=== PATIENT | female | born 1945 | race Caucasian/White ===

== ENCOUNTER 2018-12-06 09:15 | Inpatient (IN) | payer OTHER ==
[2018-12-06] MEDS: CEFAZOLIN 2 GM/D5W 2 GM/50 ML ML IVPB SCH ×2 (04:00→19:57)
--- NOTE | 2018-12-06 08:00 | HP ---
[facility]ellite [facility] - Chief Complaint Chief Complaint: right knee pain - Past Medical History Allergies/Adverse Reactions: Allergies Allergy/AdvReac Type Severity Reaction Status Date / Time No Known Drug Allergies Allergy Verified 10/26/18 09:13 - Current Medications Current Medications: Home Medications Medication Instructions Recorded Aspirin [Aspirin EC] 81 mg PO DAILY 05/09/14 Pantoprazole Sodium [Protonix] 40 mg PO DAILY 05/09/14 Pravastatin Sodium [Pravachol -] 20 mg PO DAILY 05/09/14 Amoxicillin - [Amoxicillin 875mg 875 mg PO BID 12/02/18 Tablet -] Olmesartan/Amlodipin/Hcthiazid 1 each PO DAILY 12/02/18 [Tribenzor 40-5-25 mg Tablet] Oxybutynin Chloride [Ditropan -] 5 mg PO DAILY 12/02/18 Tramadol HCl 50 mg PO Q8H PRN 12/02/18 Satellite Physical Exam - Physical Examination General Appearance: Well Nourished, Well Developed, Alert & Oriented x3 ENT: Clear Lung: Normal air movement Heart: Regular rate & rhythm Extremities: Other (right knee- + swelling, + ttp, decr rom, nvi xrays show grade 4 tricompartmental djd) Neurological: Intact, Alert, Oriented Satellite Impression/Plan - Impression/Plan Impression: right knee djd Operative Procedure: right tavo tkr Date to be Performed: 12/06/18
[2018-12-06] MEDS ORDERED: TRANEXAMIC ACID 1000 MG/10 ML VIAL IVPUSH ONE (09:31)
[2018-12-06] MEDS ORDERED: CELECOXIB 200 MG CAPSULE PO ONE (09:31)
[2018-12-06] MEDS ORDERED: GABAPENTIN 300 MG CAPSULE (FP) PO ONE (09:31)
[2018-12-06] MEDS ORDERED: oxyCODONE HCL 10 MG SUSTAINED ACTING TABLET PO ONE (09:31)
[2018-12-06] MEDS ORDERED: CEFAZOLIN 2 GM in DEXTROSE 5%-WATER - 50 ML IVPB ONE (09:31)
[2018-12-06 09:37] VITALS: BMI 34.4
[2018-12-06] MEDS ORDERED: ceFAZolin SODIUM 1 GM VIAL ONE ×2 (10:15→11:33)
[2018-12-06] MEDS ORDERED: VANCOMYCIN 1,000 MG VIAL (RESTRICTED TO ID ONLY) ONE (10:15)
[2018-12-06] MEDS ORDERED: MIDAZOLAM HCL 2 MG/2 ML SINGLE DOSE VIAL ONE (10:27)
[2018-12-06] MEDS ORDERED: BUPIVACAINE LIPOSOME/PF (EXPAREL) 266 MG/20 ML VIAL ONE (10:28)
[2018-12-06] MEDS ORDERED: ePHEDrine SULFATE 50 MG/1 ML AMPULE ONE (11:49)
[2018-12-06] MEDS ORDERED: ONDANSETRON 4 MG/2 ML VIAL IVPUSH PRN ×2 (12:20→13:20)
[2018-12-06] MEDS ORDERED: oxyCODONE HCL 5 MG TABLET PO PRN (12:21)
[2018-12-06] MEDS ORDERED: LACTATED RINGERS SOLUTION 1,000 ML IV SCH ×2 (12:30→13:30)
[2018-12-06] MEDS ORDERED: MAG HYDROX/AL HYDROX/SIMETH 30 ML UNIT-DOSE CUP PO PRN (13:20)
[2018-12-06] MEDS ORDERED: MAGNESIUM HYDROX 2400MG/30ML ORAL SUSPENSION 30 ML CUP PO PRN (13:20)
--- NOTE | 2018-12-06 13:22 | OP ---
Operative Note - Note: Operative Date: 12/06/18 (emma) Pre-Operative Diagnosis: right knee djd Operation: right tavo tkr Post-Operative Diagnosis: Same as Pre-op Surgeon: Nishant Persaud Language Translator: Heladio Chahal Anesthesiologist/COMPUTER FORENSIC EXAMINER: Eliel Covington Anesthesia: Spinal, Local Specimens Removed: bone fragments Estimated Blood Loss (mls): 100 Operative Report Dictated: Yes
--- NOTE | 2018-12-06 13:50 | SPEC ---
DATE OF OPERATION: 12/06/2018 PREOPERATIVE DIAGNOSIS: Degenerative joint disease, right knee. POSTOPERATIVE DIAGNOSIS: Degenerative joint disease, right knee. PROCEDURE: Right total knee replacement with robotic-assisted navigation (MAKOplasty). SURGICAL ATTENDING: Nishant Persaud MD TALENT ACQUISITION SPECIALIST: MIREILLE Alfonso ANESTHESIA: Regional and spinal. CLOSURE: Triathlon cemented total knee system with a 3 femur, 4 tibia, 11 polyethylene, 32 patella, No. 1 Vicryl to fascia, 0 and 2-0 for subcutaneous, 3-0 Monocryl subcuticular with skin glue for skin, 4-0 undyed Vicryl for the pen sites. ESTIMATED BLOOD LOSS: Less than 100 mL. COMPLICATIONS: None. CONDITION: To recovery room in stable condition. DESCRIPTION OF OPERATIVE PROCEDURE: Patient was taken to the operating room on December 06, 2018. Regional and general anesthesia was administered by the anesthesiologist. IV Kefzol and TXA were administered by the anesthesiologist. Well-padded pneumatic tourniquet was placed on the proximal thigh. The right lower extremity was prepped and draped in the usual sterile fashion. The leg was exsanguinated with an Esmarch bandage, and tourniquet was inflated to 275 mmHg. A 12 to 15-cm longitudinal midline incision was incised while centered over the patella. The dissection was carried down to the level of the extensor mechanism with sufficient flaps made to adequately perform the procedure. A medial parapatellar arthrotomy was then performed. We made a cuff of tissue on the patella for later closure. The patella was inverted, the knee was flexed up. The fat pad was excised. The subperiosteal dissection was on the anteromedial proximal tibia around towards the direction of the MCL. The ACL and the PCL were transected and debrided. The meniscal remnants of the medial and lateral meniscus were debrided and removed. This allowed the knee to be able to "be brought forward." The checkpoints were malleted into the tibia and into the femur. Two threaded pins were drilled anteroposteriorly proximal to the knee through the previous incision, through the anterior cortex, then just engaging the posterior cortex. To these pins was assembled the femoral navigation array. One handbreadth below the tibial tubercle, 2 stab incisions were used to drill 2 threaded pins in parallel fashion into the tibia, again through the anterior cortex and just engaging the posterior cortex. To these pins was fastened the tibial arrays. The knee was then registered with the navigation device with center of rotation of the hip, medial and lateral malleoli, both checkpoints, and multiple points on both the femur and the tibia to ensure excellent registration. The navigation device was directed off the "top of the bubbles" on both the femur and the tibia. The navigation passed within less than 0.5 mm to plan. The knee was then thoroughly inspected to remove all osteophytes both medially, laterally, and on the femur and the tibia, and whatever osteophytes were available for dissection. The knee was then taken to extension and to flexion, and stressed in both varus and valgus to assess flexion gaps. The virtual position of the components on the navigation device were then manipulated to optimize the position and to ensure equal gaps in both flexion and extension, and both medially and laterally. The robot was then brought into the field and was registered. The cuts were then made both on the femur and on the tibia as to plan. All osteophytes posteriorly were then removed as well. The gaps were then measured again in flexion and extension to be equal in both flexion and extension and medial and laterally. The femoral notch was then made, as we were doing a posterior stabilizing component, with the appropriate sized box. Trial reduction of the femur achieved excellent [id number] fit. A tibial baseplate of appropriate polyethylene thickness was "floated in the knee." It was ensured to be in the excellent position by navigation devices and was pinned in place. The knee was taken through a range of motion, and found to have excellent stability throughout flexion and extension. The patella was calibrated for thickness and osteotomized down to the appropriate level. The appropriate lollipop was used to drill the lug holes in the patella and the trial button was applied. The knee was taken through a range of motion and found to have excellent tracking of the patella, and patella from full extension to full flexion. Trial components were removed, the keel was punched and drilled, and a sclerotic bone on the tibia was drilled to help with cement interdigitation. The knee was thoroughly irrigated with the pulse antibiotic milking system installer. The real components were then cemented in using monitored arrangement cement techniques with antibiotic cement, and pressurization and extension. After the cement was hardened, the knee was thoroughly inspected to remove any extra cement. The real polyethylene component was then clipped into place. Range of motion, stability, and tracking were as described earlier. The checkpoints and the pins were removed. The knee was thoroughly irrigated with antibiotic irrigation. Vancomycin powder was placed into the knee for antibiotic prophylaxis. The medial parapatellar arthrotomy was then closed using number 1 Vicryl interrupted suture. After closure of the deep layer, the knee was taken through a range of motion, and found to have excellent stability of the patella with no dislocation and no undue tension on the repair. The subcutaneous was pulse antibiotic irrigated, and was then closed with 2-0 Vicryl, 3-0 Monocryl subcuticular with the skin glue for the skin. The distal tibial pin site was irrigated thoroughly as well and then closed with 4-0 undyed Vicryl. A sterile Aquacel dressing was applied, followed by a Sam dressing. Tourniquet was deflated. Total tourniquet time was approximately 75 minutes. No complications. Patient was awakened from anesthesia and transferred to recovery room in stable condition. Postoperative x-rays revealed excellent position of the components. Brian [id number]
[2018-12-06] MEDS: ACETAMINOPHEN 325 MG TABLET (FP) PO SCH ×2 (19:23→19:57)
[2018-12-06] MEDS: SENNOSIDES/DOCUSATE COMBO (SENNA PLUS) TABLET (UD) PO SCH (21:19)
[2018-12-06] MEDS: oxyCODONE HCL 10 MG SUSTAINED ACTING TABLET PO SCH (21:20)
[2018-12-07] MEDS: ACETAMINOPHEN 325 MG TABLET (FP) PO SCH ×4 (01:43→20:07)
[2018-12-07] MEDS: oxyCODONE HCL 5 MG TABLET PO PRN (01:44)
[2018-12-07 07:18] LABS: HEMATOCRIT 33.7 % (32.4-45.2); MCH 29.5 pg (25.7-33.7); MCHC 32.6 g/dl (32.0-36.0); MEAN CELL VOLUME 90.3 fl (80-96); MEAN PLT VOLUME 8.2 fl (7.5-11.1); PLATELET COUNT 192 K/MM3 (134-434); RBC 3.74 M/mm3 (3.60-5.2); RDW 13.9 % (11.6-15.6); WHITE BLOOD COUNT 6.2 K/mm3 (4.0-10.8)
--- NOTE | 2018-12-07 08:14 | PN ---
Progress Note (short form) - Note Progress Note: Post op day#1.S/p Right total knee JOSÉ MANUEL plasty under spinal anesthesia with Adductor canal block uneventful.Patient stable and has some pain for which she is on medication.No any anesthesia related problem.Patient Dc from the anesthesia care.
--- NOTE | 2018-12-07 08:26 | PN ---
Progress Note (short form) - Note Progress Note: Ortho Pt seen and examined s/p right tavo tkr pod #1 Selected Entries 12/07/18 06:00 Temperature 98.7 F Pulse Rate 74 Respiratory 19 Rate Blood Pressure 116/68 Laboratory Tests 12/07/18 07:00 WBC 6.2 Hgb 11.0 Hct 33.7 Plt Count 192 Dressing c/d/i, calf soft, nt rom 0-30, nvi a/p PT dvt ppx pain control d/c home tomorrow if stable
[2018-12-07] MEDS: amLODIPine BESYLATE 5 MG TABLET (FP) PO SCH (09:11)
[2018-12-07] MEDS: HYDROCHLOROTHIAZIDE 25 MG TABLET (FP) PO SCH (09:11)
[2018-12-07] MEDS: ASPIRIN 325 MG TABLET PO SCH (09:11)
[2018-12-07] MEDS: VALSARTAN 160 MG TABLET (UD) PO SCH (09:12)
[2018-12-07] MEDS: OXYBUTYNIN CHLORIDE 5 MG TABLET PO SCH (09:12)
[2018-12-07] MEDS: oxyCODONE HCL 10 MG SUSTAINED ACTING TABLET PO SCH ×2 (09:13→21:36)
[2018-12-07] MEDS: PANTOPRAZOLE 40 MG TABLET (FP) PO SCH (09:13)
[2018-12-07] MEDS: MULTIVITAMINS (DAILY MVI) TABLET (FP) PO SCH (09:13)
[2018-12-07] MEDS: SENNOSIDES/DOCUSATE COMBO (SENNA PLUS) TABLET (UD) PO SCH ×2 (10:00→21:37)
[2018-12-07] MEDS ORDERED: OLMESARTAN PO SCH (10:00)
[2018-12-07] MEDS ORDERED: AMLODIPIN PO SCH (10:00)
[2018-12-07] MEDS ORDERED: HCTHIAZID PO SCH (10:00)
[2018-12-07] MEDS ORDERED: [UNRECOGNIZED DRUG - OTHER] PO SCH (10:00)
[2018-12-07] MEDS ORDERED: PATIENT'S OWN MEDICATION (NON-FORMULARY) (Pravastatin Sodium 20 MG) PO SCH (10:00)
[2018-12-07] MEDS ORDERED: ATORVASTATIN CA 10 MG TABLET (FP) PO SCH (22:00)
[2018-12-08] MEDS: ACETAMINOPHEN 325 MG TABLET (FP) PO SCH ×2 (01:34→09:29)
[2018-12-08 06:34] VITALS: BP 107/54; PULSE 73; TEMP 98.3
[2018-12-08 08:20] LABS: HEMOGLOBIN 10.7 GM/dl (10.7-15.3); MCHC 33.4 g/dl (32.0-36.0); MEAN CELL VOLUME 89.9 fl (80-96); MEAN PLT VOLUME 8.4 fl (7.5-11.1); PLATELET COUNT 174 K/MM3 (134-434); RBC 3.56 M/mm3 (3.60-5.2); RDW 13.6 % (11.6-15.6); WHITE BLOOD COUNT 6.9 K/mm3 (4.0-10.8)
--- NOTE | 2018-12-08 08:40 | PN ---
Progress Note (short form) - Note Progress Note: Ortho Pt seen and examined s/p right tavo tkr pod #2 Selected Entries 12/08/18 06:00 Temperature 98.3 F Pulse Rate 73 Respiratory 19 Rate Blood Pressure 107/54 L Laboratory Tests 12/08/18 07:15 WBC 6.9 Hgb 10.7 Hct 32.0 L Plt Count 174 Dressing c/d/i, calf soft, nt rom 0-30, nvi a/p PT dvt ppx pain control d/c home today f/u in 1 week
--- NOTE | 2018-12-08 08:45 | DS ---
Physical Examination Vital Signs: Vital Signs Temperature 98.3 F 12/08/18 06:00 Pulse Rate 73 12/08/18 06:00 Respiratory Rate 19 12/08/18 06:00 Blood Pressure 107/54 L 12/08/18 06:00 O2 Sat by Pulse Oximetry (%) 93 L 12/08/18 06:00 Labs: CBC, BMP 12/08/18 07:15 Discharge Summary Reason For Visit: OSTEOARTHRITIS Procedures: Principal: right tkr Hospital Course: admitted for elective right tavo tkr, uneventful post-op, stable for d/c Condition: Good - Instructions Diet, Activity, Other Instructions: Post-op Instructions-Total Knee Replacement Call the office for a follow-up appointment in 1 week - [phone] Aspirin 325mg daily for 6 weeks. Pain medication was sent into your pharmacy. Apply Graduated Compression Stockings (TEDs) to both lower extremities- remove daily for hygiene ONLY Apply Sequential Compression Device (SCDs) to both Lower extremities remove for PT and hygiene ONLY Apply cold packs to affected area for 15 minutes every 2 hours. Physical Therapist will come to your home for the first 5 days. You will be set up with outpatient PT at your first post-operative visit. Patient may ambulate as tolerated-encourage self care (at least every 2-3 hours while awake) with walker or cane Maintain Aquacel (waterproof) dressing to operative wound (will be removed by surgeon at first office visit) Shower with Aquacel dressing in place-if Aquacel integrity compromised, remove and apply dry sterile dressing and notify Orthopedist. DO NOT SHOWER unless Orthopedists approves without Aquacel dressing CONTACT THE OFFICE FOR ANY CHANGE IN YOUR CONDITION (for example-fever greater than 102 degrees, excessive bleeding from operative site, purulent drainage, severe swelling or pain) GO TO THE EMERGENCY ROOM IF THERE IS A MEDICAL EMERGENCY Knee Precautions: * Keep a rolled towel under affected heel while in bed or chair (to keep knee in extension) * Keep affected leg elevated except during mealtimes * DO NOT PLACE PILLOW UNDER AFFECTED KNEE * If you have any questions, please do not hesitate to call the office - . Referrals: Nishant Persaud MD [Staff Physician] - Disposition: VNS/HOME HEALTH CARE - Home Medications Comprehensive Discharge Medication List: Ambulatory Orders Pantoprazole Sodium [Protonix] 40 mg PO DAILY 05/09/14 Pravastatin Sodium [Pravachol -] 20 mg PO DAILY 05/09/14 Olmesartan/Amlodipin/Hcthiazid [Tribenzor 40-5-25 mg Tablet] 1 each PO DAILY 11/19 Oxybutynin Chloride [Ditropan -] 5 mg PO DAILY 12/02/18 Tramadol HCl 50 mg PO Q8H PRN 12/02/18 Aspirin [ASA -] 325 mg PO DAILY@0800 tablet 12/06/18 Oxycodone HCl/Acetaminophen [Percocet 5-325 mg Tablet -] 1 - 2 tab PO Q6H #50 tab MDD 8 12/06/18
[2018-12-08] MEDS: ASPIRIN 325 MG TABLET PO SCH (09:25)
[2018-12-08] MEDS: SENNOSIDES/DOCUSATE COMBO (SENNA PLUS) TABLET (UD) PO SCH (09:26)
[2018-12-08] MEDS: PANTOPRAZOLE 40 MG TABLET (FP) PO SCH (09:26)
[2018-12-08] MEDS: MULTIVITAMINS (DAILY MVI) TABLET (FP) PO SCH (09:26)
[2018-12-08] MEDS: OXYBUTYNIN CHLORIDE 5 MG TABLET PO SCH (09:27)
[2018-12-08] MEDS: HYDROCHLOROTHIAZIDE 25 MG TABLET (FP) PO SCH (09:27)
[2018-12-08] MEDS: oxyCODONE HCL 5 MG TABLET PO PRN (09:27)
[2018-12-08] MEDS: amLODIPine BESYLATE 5 MG TABLET (FP) PO SCH (09:28)
[2018-12-08] MEDS: VALSARTAN 160 MG TABLET (UD) PO SCH (09:31)
[2018-12-08] MEDS: oxyCODONE HCL 10 MG SUSTAINED ACTING TABLET PO SCH (09:31)
--- NOTE | 2018-12-08 16:46 | PATH ---
Surgical Pathology Report Patient Name: ENRIQUETA FUNES Med. Rec. #: [id number] /Age/Gender: 1945 (Age: 73) / F Account: [id number] Location: [facility] MED-SURG Taken: 12/06/2018 Received: 12/06/2018 Reported: 12/08/2018 Physicians: Nishant Persaud M.D. Specimen(s) Received RIGHT KNEE BONES Clinical History Osteoarthritis right knee Final Diagnosis BONE, KNEE, RIGHT, TOTAL KNEE REPLACEMENT: BONE WITH DEGENERATIVE JOINT DISEASE AND REACTIVE SYNOVIUM. Electronically Signed Natasha Haywood M.D. Gross Description Received in formalin labeled "right knee bones," is a 10.0 x 9.5 x 1.8 cm aggregate of multiple irregular portions of bone and soft tissue. The tibial plateau measures 7.4 x 5.0 and 1.6 cm. There are no areas of eburnation present. The articular surfaces are roberts brown and diffusely granular. The underlying trabecular bone is yellow and hard. Truck Driver Salesperson sections are submitted in one cassette, following decalcification. /[facility]
== END 2018-12-08 13:14 | disposition home health service (06) | DRG 470 ==
LOC: FM/S 09:15
PROVIDERS: ADMIT Orthopaedic Surgery; ATTEND Orthopaedic Surgery
PROC: 8E0Y0CZ Robotic Assisted Procedure of Lower Extremity, Open Approach (ICD-10-PCS; 2018-12-06)
PROC: 0SRC0J9 Replacement of Right Knee Joint with Synthetic Substitute, Cemented, Open Approach (ICD-10-PCS; principal; 2018-12-06 11:00)
DX: M17.11 Unilateral primary osteoarthritis, right knee (principal)
CPT/HCPCS: 36415; 73560-TC-RT-FY; 85027; 88305-TC; 88311-TC; 94760; 97116-GP; 97162-GP

== ENCOUNTER 2021-05-14 04:39 | Day surgery (SDC) | payer OTHER ==
[2021-05-13 09:34] VITALS: BMI 34.7
[2021-05-14] MEDS ORDERED: ROPIVACAINE HCL 0.5% 30ML VIAL ONE (10:04)
[2021-05-14] MEDS ORDERED: MIDAZOLAM HCL 2 MG/2 ML SINGLE DOSE VIAL ONE ×2 (10:05)
[2021-05-14] MEDS ORDERED: ceFAZolin SODIUM 1 GM VIAL ONE (11:11)
[2021-05-14] MEDS ORDERED: PROPOFOL 20 ML ONE ×2 (11:11)
[2021-05-14] MEDS ORDERED: DEXAMETHASONE SOD PHOSPHATE 4 MG/1 ML VIAL ONE (11:11)
[2021-05-14] MEDS ORDERED: ceFAZolin SODIUM 1 GM VIAL IVPB ONE (11:44)
[2021-05-14] MEDS ORDERED: oxyCODONE HCL 5 MG TABLET PO PRN ×2 (11:46)
[2021-05-14] MEDS ORDERED: ONDANSETRON 4 MG/2 ML VIAL IVPUSH PRN (11:46)
[2021-05-14] MEDS ORDERED: LACTATED RINGERS SOLUTION 1,000 ML IV SCH (12:00)
[2021-05-14] MEDS ORDERED: KETOROLAC TROMETHAMINE 30 MG/1 ML VIAL ONE (12:14)
[2021-05-14 18:02] VITALS: BP 140/60; PULSE 68; TEMP 97.8
== END 2021-05-14 15:45 | disposition home or self-care (01) ==
LOC: JASU-SURG 04:39
PROVIDERS: ATTEND Orthopaedic Surgery
PROC: 0RNK4ZZ Release Left Shoulder Joint, Percutaneous Endoscopic Approach (ICD-10-PCS; principal; 2021-05-14 11:00)
PROC: 0LQ24ZZ Repair Left Shoulder Tendon, Percutaneous Endoscopic Approach (ICD-10-PCS; 2021-05-14 11:00)
DX: M75.102 Unspecified rotator cuff tear or rupture of left shoulder, not specified as traumatic (principal)
CPT/HCPCS: 94760

== ENCOUNTER 2022-06-15 04:14 | Day surgery (SDC) | payer MEDICARE, OTHER ==
[2022-06-11 17:57] VITALS: BMI 36.1
[2022-06-15] MEDS ORDERED: LIDOCAINE HCL 1%, 10 MG/ML (20ML VIAL) ONE (07:36)
[2022-06-15 08:00] LABS: BASO % 0.1 % (0-2.0); HEMATOCRIT 37.1 % (32.4-45.2); HEMOGLOBIN 12.4 GM/dL (10.7-15.3); LYMPH % 18.7 % (8-40); MCH 28.2 pg (25.7-33.7); MCHC 33.5 g/dl (32.0-36.0); MEAN CELL VOLUME 84.3 fl (80-96); MEAN PLT VOLUME 8.1 fl (7.5-11.1); MONO % 5.5 % (3.8-10.2); NEUT % 75.7 % (42.8-82.8); PLATELET COUNT 284 10^3/uL (134-434); RDW 16.8 % (11.6-15.6)
[2022-06-15] MEDS ORDERED: MIDAZOLAM HCL 2 MG/2 ML SINGLE DOSE VIAL ONE ×2 (08:00→08:22)
[2022-06-15] MEDS ORDERED: PROPOFOL 20 ML ONE (08:00)
[2022-06-15 08:17] LABS: CALCIUM 8.9 mg/dL (8.5-10.1)
[2022-06-15 08:18] LABS: ALBUMIN 3.6 g/dl (3.4-5.0); BLOOD UREA NITROGEN 43.2 mg/dL (7-18)
[2022-06-15] MEDS ORDERED: ceFAZolin SODIUM 1 GM VIAL IVPB ONE (08:20)
[2022-06-15 08:21] LABS: CREATININE 1.4 mg/dL (0.55-1.3)
[2022-06-15 08:23] LABS: BILIRUBIN,TOTAL 0.4 mg/dL (0.2-1); TOT PROT 7.6 g/dl (6.4-8.2)
[2022-06-15] MEDS ORDERED: LIDOCAINE HCL 1%, 10 MG/ML (20ML VIAL) NR ONE ×3 (08:26→08:29)
[2022-06-15] MEDS ORDERED: ONDANSETRON 4 MG/2 ML VIAL IVPUSH PRN (09:22)
[2022-06-15] MEDS ORDERED: oxyCODONE HCL 5 MG TABLET PO PRN ×2 (09:22)
[2022-06-15] MEDS ORDERED: LACTATED RINGERS SOLUTION 1,000 ML IV SCH (09:30)
[2022-06-15 10:33] VITALS: RESP 18
[2022-06-15 11:17] VITALS: BP 137/70; PULSE 54; TEMP 97.1
== END 2022-06-15 11:35 | disposition home or self-care (01) ==
LOC: JASU-SURG 04:14
PROVIDERS: ATTEND Surgery Vascular Surgery
PROC: 03BT0ZX Excision of Left Temporal Artery, Open Approach, Diagnostic (ICD-10-PCS; principal; 2022-06-15 08:00)
DX: M31.6 Other giant cell arteritis (principal)
CPT/HCPCS: 36415; 80053; 85025; 88305-TC; 93005; 93010; 94760

== ENCOUNTER 2024-07-04 17:47 | Observation (INO) | payer OTHER ==
[2024-07-04] MEDS ORDERED: CEPHALEXIN MONOHYDRATE 500 MG CAPSULE (UD) ONE (19:31)
[2024-07-04] MEDS: CEPHALEXIN MONOHYDRATE 500 MG CAPSULE (UD) PO ONE (19:33)
[2024-07-04 19:34] LABS: BASO % 0.6 % (0-2.0); EOS % 3.2 % (0-4.5); HEMATOCRIT 34.4 % (32.4-45.2); HEMOGLOBIN 11.3 GM/dL (10.7-15.3); LYMPH % 34.6 % (8-40); MCH 28.3 pg (25.7-33.7); MCHC 32.7 g/dl (32.0-36.0); MEAN CELL VOLUME 86.4 fl (80-96); MEAN PLT VOLUME 7.2 fl (7.5-11.1); MONO % 9.8 % (3.8-10.2); NEUT % 51.8 % (42.8-82.8); PLATELET COUNT 226 10^3/uL (134-434); RBC 3.98 M/mm3 (3.60-5.2); RDW 17.4 % (11.6-15.6)
[2024-07-04] MEDS ORDERED: ceFAZolin SODIUM 1 GM VIAL ONE (19:38)
[2024-07-04 19:58] LABS: ALBUMIN 3.1 g/dl (3.4-5.0); BLOOD UREA NITROGEN 22.4 mg/dL (7-18); CALCIUM 8.7 mg/dL (8.5-10.1)
[2024-07-04 20:01] LABS: CREATININE 0.8 mg/dL (0.55-1.3)
[2024-07-04 20:03] LABS: BILIRUBIN,TOTAL 0.4 mg/dL (0.2-1); TOT PROT 7.2 g/dl (6.4-8.2)
[2024-07-04] MEDS: CEFAZOLIN 1 GM in DEXTROSE 5%-WATER - 50 ML IVPB ONE (20:28)
[2024-07-04] MEDS ORDERED: ACETAMINOPHEN 325 MG TABLET (FP) ONE (20:29)
[2024-07-04] MEDS: ACETAMINOPHEN 325 MG TABLET (FP) PO ONE (20:31)
[2024-07-04] MEDS ORDERED: DOCUSATE SODIUM 100 MG CAPSULE (FP) PO PRN (21:26)
[2024-07-04] MEDS ORDERED: HEPARIN NA (PORCINE) 5,000 UNITS/ML 1ML VIAL ONE (22:06)
[2024-07-04] MEDS: HEPARIN NA (PORCINE) 5,000 UNITS/ML 1ML VIAL SQ SCH ×2 (22:12→22:13)
[2024-07-05] MEDS: CEFAZOLIN SODIUM 2 GM in DEXTROSE 5%-WATER 100 ML IVPB SCH ×2 (02:16→17:55)
[2024-07-05 02:53] VITALS: BMI 37.7
[2024-07-05] MEDS ORDERED: HEPARIN NA (PORCINE) 5,000 UNITS/ML 1ML VIAL SQ SCH (06:00)
[2024-07-05] MEDS: PANTOPRAZOLE 40 MG TABLET PO SCH (06:04)
[2024-07-05] MEDS: metoPROLOL SUCCINATE 25 MG TAB.SR.24H (FP) PO SCH (09:06)
[2024-07-05] MEDS: FUROSEMIDE 40 MG TABLET (FP) PO SCH (09:07)
[2024-07-05] MEDS: CITALOPRAM HYDROBROMIDE 10 MG TABLET PO SCH (09:07)
[2024-07-05] MEDS: ACETAMINOPHEN 1000 MG/100 ML BAG IVPB PRN (09:07)
[2024-07-05] MEDS: ISOSORBIDE MONONITRATE 30 MG TAB.SR.24H (FP) PO SCH (09:07)
[2024-07-05 09:59] LABS: BASO % 0.7 % (0-2.0); EOS % 3.6 % (0-4.5); HEMATOCRIT 34.9 % (32.4-45.2); HEMOGLOBIN 11.7 GM/dL (10.7-15.3); LYMPH % 36.1 % (8-40); MCH 28.7 pg (25.7-33.7); MCHC 33.4 g/dl (32.0-36.0); MEAN CELL VOLUME 85.7 fl (80-96); MEAN PLT VOLUME 7.5 fl (7.5-11.1); MONO % 8.9 % (3.8-10.2); NEUT % 50.7 % (42.8-82.8); PLATELET COUNT 237 10^3/uL (134-434); RBC 4.07 M/mm3 (3.60-5.2)
[2024-07-05] MEDS ORDERED: PATIENT'S OWN MEDICATION (NON-FORMULARY) (Linaclotide 145 MCG Capsule) PO SCH (10:00)
[2024-07-05 10:59] LABS: BLOOD UREA NITROGEN 16.1 mg/dL (7-18)
[2024-07-05 11:02] LABS: CREATININE 0.8 mg/dL (0.55-1.3)
[2024-07-05] MEDS: PIPERACILLIN/TAZOB 3.375 GM 3.375 GM in DEXTROSE 5%-WATER - 50 ML IVPB SCH (11:57)
[2024-07-05] MEDS: CEFAZOLIN SODIUM 2 GM VIAL IVPB SCH (11:57)
[2024-07-05] MEDS ORDERED: PIPERACILLIN/TAZOB 3.375 GM 3.375 GM in DEXTROSE 5%-WATER - 50 ML IVPB SCH (18:00)
[2024-07-05] MEDS: GABAPENTIN 300 MG CAPSULE PO SCH (22:37)
[2024-07-05] MEDS: LOSARTAN 50MG/HCTZ 12.5MG 1 TAB PO SCH (22:56)
[2024-07-06 04:20] VITALS: RESP 18
[2024-07-06] MEDS: ACETAMINOPHEN 325 MG TABLET (FP) PO PRN (20:14)
[2024-07-10] MEDS: ERGOCALCIFEROL (VIT D2) 50,000 UNIT (1.25 MG) CAPSULE PO SCH (09:56)
[2024-07-10] MEDS ORDERED: PATIENT'S OWN MEDICATION (NON-FORMULARY) (Alendronate Sodium [Fosamax] 70 MG Tablet) PO SCH (10:00)
[2024-07-10 16:34] VITALS: BP 113/73; PULSE 67; TEMP 98.8
== END 2024-07-10 17:10 | disposition home or self-care (01) ==
LOC: JER 17:47 → JERBED 20:39 → J6S 07-05 01:56
PROVIDERS: ADMIT Internal Medicine; ATTEND Family Medicine
PROC: 3E03329 Introduction of Other Anti-infective into Peripheral Vein, Percutaneous Approach (ICD-10-PCS; principal; 2024-07-04)
PROC: 3E033NZ Introduction of Analgesics, Hypnotics, Sedatives into Peripheral Vein, Percutaneous Approach (ICD-10-PCS; 2024-07-04)
PROC: 3E023GC Introduction of Other Therapeutic Substance into Muscle, Percutaneous Approach (ICD-10-PCS; 2024-07-04)
DX: L03.115 Cellulitis of right lower limb (principal); L03.116 Cellulitis of left lower limb; I83.813 Varicose veins of bilateral lower extremities with pain; L53.8 Other specified erythematous conditions; E78.5 Hyperlipidemia, unspecified; I11.0 Hypertensive heart disease with heart failure; M19.90 Unspecified osteoarthritis, unspecified site; I89.0 Lymphedema, not elsewhere classified; Z98.890 Other specified postprocedural states; R63.0 Anorexia; K21.9 Gastro-esophageal reflux disease without esophagitis; Z87.891 Personal history of nicotine dependence; Z96.651 Presence of right artificial knee joint
CPT/HCPCS: 0241U-QW; 36415; 76882-TC-50; 80048; 80053; 83605; 83735; 83880; 84100; 85025; 86140; 87040; 93005; 93010; 93970-TC; 96365; 96366; 96367; 96372; 96375; 99285-25; G0378; J0131; J1644